=== PATIENT | male | born 1985 | race Caucasian/White ===

== ENCOUNTER 2018-08-28 10:08 | Inpatient (IN) | payer OTHER ==
[2018-08-28 10:46] VITALS: BMI 19.2
--- NOTE | 2018-08-28 13:57 | HP ---
CIWA Score - CIWA Score Nausea/Vomitin Muscle Tremors: 2 Anxiety: 2 Agitation: 2 Paroxysmal Sweats: 1-Minimal Palms Moist Orientation: 0-Oriented Tacttile Disturbances: 1-Very Mild Itch/Numbness Auditory Disturbances: 1-Very Mild Visual Disturbances: 0-None Headache: 2-Mild CIWA-Ar Total Score: 13 Admission ROS BHS - HPI Chief Complaint: i need help to stop drinking alcohol Allergies/Adverse Reactions: Allergies Allergy/AdvReac Type Severity Reaction Status Date / Time No Known Drug Allergies Allergy Unknown Verified 08/28/18 14:23 EGGPLANT Allergy Severe Swelling Uncoded 08/28/18 11:54 NKDA Allergy Uncoded 08/28/18 11:54 History of Present Illness: this 32 years old male with alcohol dependence,withdrawal symptom,seeking detox, last detox [place] 2013 seizure longest sobriety 3 to 4 months depression stated need help to stop drinking Exam Limitations: No Limitations - Ebola screening Have you traveled outside of the country in the last 21 days: No Have you had contact with anyone from an Ebola affected area: No Have you been sick,other than usual withdrawal symptoms: No Do you have a fever: No - Review of Systems Constitutional: Loss of Appetite, Malaise, Night Sweats, Weakness EENT: reports: Nose Congestion Respiratory: reports: No Symptoms reported Cardiac: reports: No Symptoms Reported GI: reports: Poor Appetite, Abdominal cramping : reports: No Symptoms Reported Musculoskeletal: reports: Muscle Pain Integumentary: reports: Dryness Neuro: reports: Headache, Tremors Endocrine: reports: No Symptoms Reported Hematology: reports: No Symptoms Reported Psychiatric: reports: Judgement Intact, Mood/Affect Appropiate, Orientated x3, Depressed Patient History - Patient Medical History Hx Anemia: No Hx Asthma: No Hx Chronic Obstructive Pulmonary Disease (COPD): No Hx Cancer: No Hx Cardiac Disorders: No Hx Congestive Heart Failure: No Hx Hypertension: No Hx Hypercholesterolemia: No Hx Seizures: Yes (v2-last episode was in 10/2017) Hx Dementia: No Hx Diabetes: No Hx Gastrointestinal Disorders: Yes (stomach ulcer) Hx Liver Disease: No Hx Genitourinary Disorders: No Hx Sexually Transmitted Disorders: No Hx Renal Disease (ESRD): No Hx Thyroid Disease: No Hx Human Immunodeficiency Virus (HIV): No (last 2018 negative) Hx Hepatitis C: No Hx Depression: Yes Hx Suicide Attempt: No Hx Bipolar Disorder: No Hx Schizophrenia: No Other Medical History: no suicidal,no homicidal - Patient Surgical History Past Surgical History: No Hx Neurologic Surgery: No Hx Cataract Extraction: No Hx Cardiac Surgery: No Hx Lung Surgery: No Hx Breast Surgery: No Hx Breast Biopsy: No Hx Abdominal Surgery: No Hx Appendectomy: No Hx Cholecystectomy: No Hx Genitourinary Surgery: No Hx Section: No Hx Orthopedic Surgery: No Anesthesia Reaction: No - PPD History Previous Implant?: Yes Documented Results: Negative w/o proof Implanted On Prior [facility] Admission?: No PPD to be Administered?: Yes - Smoking Cessation Smoking history: Never smoked Have you smoked in the past 12 months: No Hx Chewing Tobacco Use: No Initiated information on smoking cessation: No - Substance & Tx. History Hx Alcohol Use: Yes Hx Substance Use: No Substance Use Type: Alcohol Hx Substance Use Treatment: Yes (last 2012 [place]) - Substances Abused Alcohol-beer Route: Oral Frequency: Daily Amount used: 4 (24 oz.) Age of first use: 19 Date of Last Use: 08/28/18 Family Disease History - Family Disease History Family Disease History: Other: Father (alcohol) Admission Physical Exam BHS - Vital Signs Vital Signs: Vital Signs - 24 hr 08/28/18 10:44 Temperature 98.5 F Pulse Rate 70 Respiratory 20 Rate Blood Pressure 143/76 - Physical General Appearance: Yes: Mild Distress, Alcohol on Breath, Tremorous, Irritable , Sweating, Anxious HEENTM: Yes: Within Normal Limits, Normal ENT Inspection, Pharynx Normal Respiratory: Yes: Lungs Clear, Normal Breath Sounds, No Respiratory Distress Neck: Yes: Within Normal Limits, Supple, Trachea in good position Breast: Yes: Within Normal Limits Cardiology: Yes: Within Normal Limits, Regular Rate, S1, S2 Abdominal: Yes: Within Normal Limits, Normal Bowel Sounds, Non Tender, Soft Genitourinary: Yes: Within Normal Limits Back: Yes: Muscle Spasm Musculoskeletal: Yes: Back pain Extremities: Yes: Tremors Neurological: Yes: Within Normal Limits, senior water/wastewater engineer II-XII NML intact, Fully Oriented, Alert, Motor Strength 5/5 Integumentary: Yes: Dry Lymphatic: Yes: Within Normal Limits - Diagnostic (1) Alcohol dependence with uncomplicated withdrawal Current Visit: Yes Status: Acute (2) Alcohol dependence with uncomplicated intoxication Current Visit: Yes Status: Acute (3) Seizure Current Visit: Yes Status: Acute (4) Depression Current Visit: Yes Status: Acute Cleared for Admission [facility] - Detox or Rehab [facility] Level of Care: Medically Managed Detox Regimen/Protocol: Librium [facility] Breath Alcohol Content Breath Alcohol Content: 0.240 Urine Drug Screen - Results Drug Screen Negative: Yes
[2018-08-28] MEDS ORDERED: MAGNESIUM HYDROX 2400MG/30ML ORAL SUSPENSION 30 ML CUP PO PRN (14:07)
[2018-08-28] MEDS ORDERED: MAGNESIUM CITRATE 300 ML BOTTLE PO PRN (14:07)
[2018-08-28] MEDS ORDERED: ACETAMINOPHEN 325 MG TABLET (FP) PO PRN (14:07)
[2018-08-28] MEDS ORDERED: LOPERAMIDE HCL 2 MG CAPSULE PO PRN (14:07)
[2018-08-28] MEDS ORDERED: IBUPROFEN 400 MG TABLET (FP) PO PRN (14:07)
[2018-08-28] MEDS ORDERED: guaiFENesin/D-METHORPHAN HB 10 ML UNIT-DOSE CUPS PO PRN (14:07)
[2018-08-28] MEDS ORDERED: MAG HYDROX/AL HYDROX/SIMETH 30 ML UNIT-DOSE CUP PO PRN (14:07)
[2018-08-28] MEDS ORDERED: MENTHOL/PHENOL 1 EACH UD MM PRN (14:07)
[2018-08-28] MEDS ORDERED: P-EPHED 60MG/TRIPROLIDI 2.5MG TABLET PO PRN (14:07)
[2018-08-28] MEDS: chlordiazePOXIDE HCL 25 MG CAPSULE PO PRN (14:58)
[2018-08-28] MEDS: chlordiazePOXIDE HCL 25 MG CAPSULE PO SCH ×2 (17:40→22:23)
[2018-08-28 19:03] LABS: URINE APPEARANCE CLEAR; URINE BILIRUBIN NEGATIVE (<2.0 mg/dL); URINE COLOR LTYELLOW; URINE GLUCOSE (UA) NEGATIVE (NEGATIVE); URINE KETONE NEGATIVE (NEGATIVE); URINE LEUK ESTERASE NEGATIVE (NEGATIVE); URINE NITRITE NEGATIVE (NEGATIVE); URINE PROTEIN NEGATIVE (NEGATIVE); URINE UROBILINOGEN NEGATIVE mg/dL (0.2-1.0)
[2018-08-28] MEDS ORDERED: MELATONIN 5 MG TABLETS PO PRN (22:00)
[2018-08-28] MEDS ORDERED: THIAMINE HCL 100 MG TABLET (FP) PO SCH (22:00)
[2018-08-29] MEDS: chlordiazePOXIDE HCL 25 MG CAPSULE PO PRN (02:38)
[2018-08-29] MEDS: chlordiazePOXIDE HCL 25 MG CAPSULE PO SCH (05:45)
--- NOTE | 2018-08-29 08:24 | CONSULT ---
[facility] Psychiatric Consult - Data Date of interview: 08/29/18 Admission source: [facility] Identifying data: this 32 years old male with alcohol dependence,withdrawal symptom,seeking detox,last detox [place] 2012. seizure. longest sobriety 3 to 4 months. depression. stated need help to stop drinking
[2018-08-29 09:16] VITALS: BP 129/96; TEMP 98.6
[2018-08-29] MEDS ORDERED: PRENATAL VITAMINS W/ FOLIC ACID TABLET (FP) PO SCH (10:00)
[2018-08-29 10:04] VITALS: PULSE 92
[2018-08-29 10:54] LABS: HEMATOCRIT 43.3 % (35.4-49); MCH 32.9 pg (25.7-33.7); MCHC 32.5 g/dl (32.0-35.9); MEAN CELL VOLUME 101.4 fl (80-96); MEAN PLT VOLUME 8.1 fl (7.5-11.1); PLATELET COUNT 138 K/MM3 (134-434); RBC 4.27 M/mm3 (4.00-5.60); RDW 15.2 % (11.9-15.9); WHITE BLOOD COUNT 4.3 K/mm3 (4.0-10.0)
[2018-08-29 11:22] LABS: ALBUMIN 4.1 g/dl (3.4-5.0); ALK PHOS 127 U/L (45-117); ANION GAP 8 MMOL/L (8-16); BILIRUBIN,TOTAL 0.9 mg/dL (0.2-1); BLOOD UREA NITROGEN 5 mg/dL (7-18); CALCIUM 8.8 mg/dL (8.5-10.1); CHLORIDE 105 mmol/L (98-107); CO2 30 mmol/L (21-32); CREATININE 0.5 mg/dL (0.55-1.3); GLUCOSE,RANDOM 85 mg/dL (74-106); POTASSIUM 4.5 mmol/L (3.5-5.1); SGOT/AST 232 U/L (15-37); SGPT/ALT 115 U/L (13-61); SODIUM 143 mmol/L (136-145); TOT PROT 7.7 g/dl (6.4-8.2)
--- NOTE | 2018-08-29 11:27 | DS ---
[facility] Detox Discharge Summary Admission Date: 08/28/18 Discharge Date: 08/29/18 - History Present History: Alcohol Dependence Additional Comments: Patient denied any withdrawal symptoms and demanded to leave AMA. As per patient , this is his first detox despite his admission note stating he had previous detox. Patient stated that his sister in law has mental problems and kept picking on him and that she is the one who told his brother to take him here for detox admission. Patient denies alcohol dependence stating that he only drinks 1 beer and a glass of wine occasionally. 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 Patient stated that he will be going to this job today to work. Patient instructed to call 911 and to see his PCP within 3 days. Patient verbalized understanding. Pertinent Past History: Alcohol related seizure disorder - Physical Exam Results Vital Signs: Vital Signs Temperature 98.6 F 08/29/18 09:16 Pulse Rate 92 H 08/29/18 09:30 Respiratory Rate 20 08/29/18 09:30 Blood Pressure 129/96 08/29/18 09:16 O2 Sat by Pulse Oximetry (%) Pertinent Admission Physical Exam Findings: Withdrawal symptoms Laboratory Tests 08/28/18 08/29/18 15:56 06:00 WBC 4.3 RBC 4.27 Hgb 14.0 Hct 43.3 MCV 101.4 H MCH 32.9 MCHC 32.5 RDW 15.2 Plt Count 138 MPV 8.1 Urine Color Ltyellow Urine Appearance Clear Urine pH 6.0 Ur Specific [place] 1.009 L Urine Protein Negative Urine Glucose (UA) Negative Urine Ketones Negative Urine Blood Negative Urine Nitrite Negative Urine Bilirubin Negative Urine Urobilinogen Negative Ur Leukocyte Esterase Negative Labs reviewed: CMP, RPR result pending - Medication Discharge Medications: Ambulatory Orders NK [No Known Home Medication] 08/28/18 - Diagnosis (1) Alcohol related seizure Status: Chronic (2) Alcohol dependence with uncomplicated withdrawal Status: Acute (3) Depression Status: Chronic - AMA Did Patient Leave Against Medical Advice: Yes (Call 911 if withdrawal symptoms or feeling sick)
--- NOTE | 2018-08-29 12:19 | EKG ---
Test Reason : Blood Pressure : / mmHG Vent. Rate : 074 BPM Atrial Rate : 074 BPM P-R Int : 142 ms QRS Dur : 098 ms QT Int : 374 ms P-R-T Axes : 035 049 036 degrees QTc Int : 415 ms NORMAL SINUS RHYTHM WITH SINUS ARRHYTHMIA NORMAL ECG NO PREVIOUS ECGS AVAILABLE Confirmed by LEE ANN ROMAN MD ([id number]) on 08/29/2018 12:19:06 PM Referred By: Confirmed By:LEE ANN ROMAN MD
[2018-08-29] MEDS ORDERED: chlordiazePOXIDE HCL 25 MG CAPSULE PO SCH (17:00)
[2018-08-30] MEDS ORDERED: chlordiazePOXIDE 5 MG CAPSULE PO SCH (17:00)
[2018-08-31] MEDS ORDERED: chlordiazePOXIDE HCL 10 MG CAPSULE PO SCH (17:00)
== END 2018-08-29 10:12 | disposition left against medical advice (07) | DRG 770 ==
LOC: YASAS 10:08 → Y3N 14:16
PROC: HZ2ZZZZ Detoxification Services for Substance Abuse Treatment (ICD-10-PCS; principal; 2018-08-28)
DX: F10.230 Alcohol dependence with withdrawal, uncomplicated (principal); F32.9 Major depressive disorder, single episode, unspecified; Z86.69 Personal history of other diseases of the nervous system and sense organs; Z87.19 Personal history of other diseases of the digestive system
CPT/HCPCS: 36415; 80053; 81003; 85027; 86593; 93005; 93010

== ENCOUNTER 2018-09-10 01:33 | Emergency (ER) | payer OTHER ==
[2018-09-10 02:02] VITALS: BP 130/70; PULSE 88; TEMP 97.7; BMI 19.8
[2018-09-10] MEDS ORDERED: SODIUM CHLORIDE 1,000 ML IV STA (02:03)
[2018-09-10 02:34] LABS: BASO % 3.3 % (0-2.0); EOS % 1.5 % (0-4.5); HEMATOCRIT 43.9 % (35.4-49); HEMOGLOBIN 15.5 GM/dL (11.7-16.9); LYMPH % 41.1 % (8-40); MCH 35.3 pg (25.7-33.7); MCHC 35.4 g/dl (32.0-35.9); MEAN CELL VOLUME 99.8 fl (80-96); MONO % 6.7 % (3.8-10.2); NEUT % 47.4 % (42.8-82.8); PLATELET COUNT 181 K/MM3 (134-434); RDW 14.4 % (11.9-15.9); WHITE BLOOD COUNT 4.6 K/mm3 (4.0-10.0)
--- NOTE | 2018-09-10 02:43 | PDOC ---
History of Present Illness - General Chief Complaint: Alcohol intoxication Stated Complaint: INTOX Time Seen by Provider: 09/10/18 02:02 History Source: Patient Exam Limitations: No Limitations - History of Present Illness Initial Comments: 09/10/18 03:00 Best Contact: PCP:None Pmhx:0 Pshx:0 Allergies:0 FH:0 Social Hx: Cigarettes/ 0 Alcohol/ social Drugs/0 LMP:N/A 32-year-old male presents to the ER without any complaints. Patient states he entered alcohol detox at [facility] today and was sent here to the emergency department to being intoxicated He she states he only had 2 shots of tequila 8 hours ago. Patient denies pain, weakness, nausea/vomiting/diarrhea, fever/chills, headache, dizziness, lightheadedness, facial pains, neck pain/ stiffness, back pains, chest pain, shortness of breath, abdominal pains, flank pains, urinary symptoms, extremity numbness or tingling sensation. Patient states he is fine and has no medical complaints. Patient's last alcohol detox session was 6 years ago in 2011 at [facility] Past History - Past Medical History Allergies/Adverse Reactions: Allergies Allergy/AdvReac Type Severity Reaction Status Date / Time No Known Drug Allergies Allergy Unknown Verified 09/10/18 01:42 EGGPLANT Allergy Severe Swelling Uncoded 09/10/18 01:42 NKDA Allergy Uncoded 09/10/18 01:42 Home Medications: Ambulatory Orders NK [No Known Home Medication] 08/28/18 Anemia: No Asthma: No Cancer: No Cardiac Disorders: No COPD: No CHF: No Dementia: No Diabetes: No GI Disorders: Yes (stomach ulcer) Disorders: No HTN: No Hypercholesterolemia: No Kidney Stones: No Liver Disease: No Seizures: Yes (v2-last episode was in 10/2017) Thyroid Disease: No - Surgical History Abdominal Surgery: No Appendectomy: No Cardiac Surgery: No Cholecystectomy: No Lung Surgery: No Neurologic Surgery: No Orthopedic Surgery: No - Reproductive History Testicular Surgery: No - Suicide/Smoking/Psychosocial Hx Smoking History: Never smoked Have you smoked in the past 12 months: No Hx Alcohol Use: Yes Drug/Substance Use Hx: No Substance Use Type: Alcohol Hx Substance Use Treatment: Yes (last 2012 [place]) Review of Systems - Review of Systems Able to Perform ROS?: Yes Comments:: 09/10/18 03:04 CONSTITUTIONAL: Absent: fever, chills, diaphoresis, generalized weakness, malaise, loss of appetite HEENT: Absent: rhinorrhea, nasal congestion, throat pain, throat swelling, difficulty swallowing, mouth swelling, ear pain, eye pain, visual Changes CARDIOVASCULAR: Absent: chest pain, loss of consciousness, palpitations, irregular heart rate, peripheral edema RESPIRATORY: Absent: cough, shortness of breath, dyspnea with exertion, orthopnea, wheezing, stridor, hemoptysis GASTROINTESTINAL: Absent: abdominal pain, abdominal distension, nausea, vomiting, diarrhea, constipation, melena, hematochezia GENITOURINARY: Absent: dysuria, frequency, urgency, hesitancy, hematuria, flank pain, genital pain MUSCULOSKELETAL: Absent: myalgia, arthralgia, joint swelling SKIN: Absent: rash, itching, pallor HEMATOLOGIC/IMMUNOLOGIC: Absent: easy bleeding, easy bruising, lymphadenopathy, frequent infections ENDOCRINE: Absent: unexplained weight gain, unexplained weight loss, heat intolerance, cold intolerance NEUROLOGIC: Absent: headache, focal weakness or paresthesias, dizziness, unsteady gait, seizure, mental status changes, bladder or bowel incontinence PSYCHIATRIC: Absent: anxiety, depression, suicidal or homicidal ideation, hallucinations. Is the patient limited Bengali proficient: No *Physical Exam - Vital Signs Last Vital Signs Temp Pulse Resp BP Pulse Ox 97.7 F 88 18 130/70 98 09/10/18 01:41 09/10/18 01:41 09/10/18 01:41 09/10/18 01:41 09/10/18 01:41 - Physical Exam Comments: 09/10/18 03:04 GENERAL: Well developed, well nourished. Awake and alert. No acute distress. HEENT: Normocephalic, atraumatic. PERRLA, EOMI. No conjunctival pallor. Sclera are non- icteric. Moist mucous membranes. Oropharynx is clear. NECK: Supple. Full ROM. No JVD. Carotid pulses 2+ and symmetric, without bruits. No thyromegaly. No lymphadenopathy. CARDIOVASCULAR: Regular rate and rhythm. No murmurs, rubs, or gallops. Distal pulses are 2+ and symmetric. PULMONARY: No evidence of respiratory distress. Lungs clear to auscultation bilaterally. No wheezing, rales or rhonchi. ABDOMINAL: Soft. Non-tender. Non-distended. No rebound or guarding. No organomegaly. Normoactive bowel sounds. MUSCULOSKELETAL Normal range of motion at all joints. No bony deformities or tenderness. No CVA tenderness. EXTREMITIES: No cyanosis. No clubbing. No edema. No calf tenderness. SKIN: Warm and dry. Normal capillary refill. No rashes. No jaundice. NEUROLOGICAL: Alert, awake, appropriate. Cranial nerves 2-12 intact. No deficits to light touch and temperature in face, upper extremities and lower extremities. No motor deficits in the in face, upper extremities and lower extremities. Normoreflexic in the upper and lower extremities. Normal speech. Toes are down- going bilaterally. Gait is normal without ataxia. PSYCHIATRIC: Cooperative. Good eye contact. Appropriate mood and affect. ED Treatment Course - LABORATORY CBC & Chemistry Diagram: 09/10/18 02:22 09/10/18 02:22 - ADDITIONAL ORDERS Additional order review: 09/10/18 02:22 RBC 4.40 MCV 99.8 H MCHC 35.4 RDW 14.4 MPV 7.0 L D Neutrophils % 47.4 Lymphocytes % 41.1 H Monocytes % 6.7 Eosinophils % 1.5 Basophils % 3.3 H *DC/Admit/Observation/Transfer Diagnosis at time of Disposition: Alcohol dependence with uncomplicated intoxication, Hypokalemia - Discharge Dispostion Condition at time of disposition: Stable Decision to Admit order: No - Referrals - Patient Instructions Printed Discharge Instructions: DI for Alcohol Abuse Additional Instructions: Increase fluids Rest Avoid alcohol REturn to the ER for any chest pain, shortness breath or any concerns - Post Discharge Activity Progress Note - Progress Note Progress Note: 0430hrs: Spoke to Khushi/detox. I've advised her that the patient is alert and oriented without slurring his speech. Patient speaking full sentences. Walking without stumbling. Patient has no medical complaints. Patient has been hydrated well and given a run of potassium. Potassium 3.4 prior to KCl 20 mEq.. Patient is to be discharged back to detox at 0600 hrs.to the intake area.
[2018-09-10] MEDS ORDERED: FOLIC ACID INJECTION - 1 MG, THIAMINE HCL 100 MG, MULTIVIT INJECTION ADULT 10 ML in SOD... IVPB ONE (03:10)
[2018-09-10 03:11] LABS: ALK PHOS 102 U/L (45-117); ANION GAP 8 MMOL/L (8-16); BILIRUBIN,TOTAL 0.4 mg/dL (0.2-1); BLOOD UREA NITROGEN 6 mg/dL (7-18); CALCIUM 8.1 mg/dL (8.5-10.1); CHLORIDE 106 mmol/L (98-107); CO2 28 mmol/L (21-32); CREATININE 0.6 mg/dL (0.55-1.3); GLUCOSE,RANDOM 99 mg/dL (74-106); POTASSIUM 3.4 mmol/L (3.5-5.1); SGOT/AST 138 U/L (15-37); SGPT/ALT 85 U/L (13-61); SODIUM 142 mmol/L (136-145); TOT PROT 7.6 g/dl (6.4-8.2)
[2018-09-10] MEDS ORDERED: POTASSIUM CHLORIDE 20 MEQ PREMIX IVPB 100 ML IVPB ONE (03:22)
[2018-09-10] MEDS ORDERED: KCL 10 MEQ IVPB 10 MEQ/100 ML INFUS.BAG IVPB SCH (03:45)
[2018-09-10] MEDS ORDERED: POTASSIUM CHLORIDE TABS 20 MEQ TABLET.ER (FP) PO ONE ×2 (05:31→05:34)
== END 2018-09-10 06:22 | disposition home or self-care (01) ==
LOC: JER 01:33
PROC: 3E0337Z Introduction of Electrolytic and Water Balance Substance into Peripheral Vein, Percutaneous Approach (ICD-10-PCS; principal; 2018-09-10)
PROC: 3E033GC Introduction of Other Therapeutic Substance into Peripheral Vein, Percutaneous Approach (ICD-10-PCS; 2018-09-10)
DX: F10.220 Alcohol dependence with intoxication, uncomplicated (principal); Y90.7 Blood alcohol level of 200-239 mg/100 ml
CPT/HCPCS: 36415; 80053; 80307; 85025; 96361; 96365; 96366; 99282-25; J7030

== ENCOUNTER 2020-07-09 11:51 | Inpatient (IN) | payer OTHER ==
--- NOTE | 2020-07-09 12:15 | BHS.RME ---
Substance Use & Tx History - Substance Use History Alcohol Substance amount: 3 24 oz beers Frequency of use: Daily Substance route: Oral Date of Last Use: 07/08/20 Physical/Psych/Mental Status - Behavior General Behavior: Decreased activity Eye Contact: Normal - Cooperativeness Cooperativeness: Cooperative - Thinking Thought Processes: Tight, Logical, Goal Directed - Physical Health Problems Is patient presently having any pain?: No Does patient presently have any injuries (include location): No Does patient currently have a fever: No Is patient : No CIWA Nausea/Vomitin Muscle Tremors: 2 Anxiety: 2 Agitation: 2 Paroxysmal Sweats: 1-Minimal Palms Moist Orientation: 1-Uncertain about Date Tacttile Disturbances: 0-None Auditory Disturbances: 0-None Visual Disturbances: 0-None Headache: 0-None Present CIWA-Ar Total Score: 10
[2020-07-09 13:15] VITALS: BMI 19.3
--- NOTE | 2020-07-09 13:32 | HP ---
<Mitali Castillo - Last Filed: 07/09/20 13:31> CIWA Score Nausea/Vomitin Muscle Tremors: 2 Anxiety: 2 Agitation: 2 Paroxysmal Sweats: 1-Minimal Palms Moist Orientation: 1-Uncertain about Date Tacttile Disturbances: 0-None Auditory Disturbances: 0-None Visual Disturbances: 0-None Headache: 0-None Present CIWA-Ar Total Score: 10 - Admission Criteria OASAS Guidelines: Admission for Medically Managed Detox: Requires at least one of the followin. CIWA greater than 12 2. Seizures within the past 24 hours 3. Delirium tremens within the past 24 hours 4. Hallucinations within the past 24 hours 5. Acute intervention needed for co occurring medical disorder 6. Acute intervention needed for co occurring psychiatric disorder 7. Severe withdrawal that cannot be handled at a lower level of care (continued vomiting, continued diarrhea, abnormal vital signs) requiring intravenous medication and/or fluids 8. Admitting History and Physical - Admission History of Present Illness: Mr. Martinez is a 34 yo man who presents to [facility] for alcohol detox Substance Use History Alcohol Substance amount: 3 24 oz beers Frequency of use: Daily Substance route: Oral Date of Last Use: 07/08/20 - Smoking History Smoking history: Never smoked Have you smoked in the past 12 months: No - Alcohol/Substance Use Hx Alcohol Use: Yes Admission [facility] Allergies/Adverse Reactions: Allergies Allergy/AdvReac Type Severity Reaction Status Date / Time No Known Drug Allergies Allergy Unknown Verified 07/09/20 13:09 EGGPLANT Allergy Severe Swelling Uncoded 07/09/20 13:09 NKDA Allergy Uncoded 07/09/20 13:09 Patient History - Patient Medical History Hx Anemia: No Hx Asthma: No Hx Chronic Obstructive Pulmonary Disease (COPD): No Hx Cancer: No Hx Cardiac Disorders: No Hx Congestive Heart Failure: No Hx Hypertension: No Hx Hypercholesterolemia: No Hx Seizures: No Hx Dementia: No Hx Diabetes: No Hx Gastrointestinal Disorders: No Hx Liver Disease: No Hx Genitourinary Disorders: No Hx Sexually Transmitted Disorders: No Hx Renal Disease (ESRD): No Hx Thyroid Disease: No Hx Human Immunodeficiency Virus (HIV): No (last 2017 negative) Hx Hepatitis C: No Hx Depression: No Hx Suicide Attempt: No Hx Bipolar Disorder: No Hx Schizophrenia: No - Patient Surgical History Past Surgical History: No Hx Neurologic Surgery: No Hx Cataract Extraction: No Hx Cardiac Surgery: No Hx Lung Surgery: No Hx Breast Surgery: No Hx Breast Biopsy: No Hx Abdominal Surgery: No Hx Appendectomy: No Hx Cholecystectomy: No Hx Genitourinary Surgery: No Hx Section: No Hx Orthopedic Surgery: No Anesthesia Reaction: No - PPD History Previous Implant?: Yes Documented Results: Negative w/o proof Implanted On Prior R Admission?: No Date: 08/30/18 - Smoking Cessation Smoking history: Never smoked Have you smoked in the past 12 months: No Hx Chewing Tobacco Use: No - Substances abused Alcohol Substance route: Oral Frequency: Daily Amount used: 24 oz beers/ 1 pint vodka Age of first use: 17 Date of last use: 07/09/20 Admission Physical Exam BHS - Vital Signs Vital Signs: Vital Signs - 24 hr 07/09/20 13:11 Temperature 97.9 F Pulse Rate 82 Respiratory 18 Rate Blood Pressure 124/82 Breathalyzer - Breathalyzer Breathalyzer: 0.495 Urine Drug Screen - Test Device Lot number: [id number] Expiration date: 06/08/22 - Control Is test valid?: Yes - Results Drug screen NEGATIVE: No Urine drug screen results: BZO-Benzodiazepines <Jaylon,Jose - Last Filed: 07/09/20 13:55> CIWA Score - Admission Criteria OASAS Guidelines: Admission for Medically Managed Detox: Requires at least one of the followin. CIWA greater than 12 2. Seizures within the past 24 hours 3. Delirium tremens within the past 24 hours 4. Hallucinations within the past 24 hours 5. Acute intervention needed for co occurring medical disorder 6. Acute intervention needed for co occurring psychiatric disorder 7. Severe withdrawal that cannot be handled at a lower level of care (continued vomiting, continued diarrhea, abnormal vital signs) requiring intravenous medication and/or fluids 8. Admitting History and Physical - Admission Limitations to Obtaining History: No Limitations Admission ROS BHS - HPI Exam Limitations: No Limitations - Ebola screening Have you traveled outside of the country in the last 21 days: No Have you had contact with anyone from an Ebola affected area: No Have you been sick,other than usual withdrawal symptoms: No Do you have a fever: No - Review of Systems Constitutional: Chills EENT: reports: No Symptoms Reported Respiratory: reports: No Symptoms reported Cardiac: reports: No Symptoms Reported GI: reports: No Symptoms Reported : reports: No Symptoms Reported Musculoskeletal: reports: No Symptoms Reported Integumentary: reports: No Symptoms Reported Neuro: reports: No Symptoms reported Endocrine: reports: No Symptoms Reported Hematology: reports: No Symptoms Reported Psychiatric: reports: Judgement Intact, Mood/Affect Appropiate, Orientated x3, Agitated, Anxious Other Systems: Reviewed and Negative Patient History - PPD History PPD to be Administered?: Yes Admission Physical Exam [facility] - Vital Signs Vital Signs: Vital Signs - 24 hr 07/09/20 13:11 Temperature 97.9 F Pulse Rate 82 Respiratory 18 Rate Blood Pressure 124/82 - Physical General Appearance: Yes: Thin, Tremorous, Irritable, Anxious HEENTM: Yes: EOMI, Hearing grossly Normal, Normal ENT Inspection, Normocephalic, Normal Voice, UMU, Pharynx Normal, Tm's normal Respiratory: Yes: Chest Non-Tender, Lungs Clear, Normal Breath Sounds, No Respiratory Distress, No Accessory Muscle Use Neck: Yes: No masses,lesions,Nodules, Supple, Trachea in good position Breast: Yes: Within Normal Limits Cardiology: Yes: Regular Rhythm, Regular Rate, S1, S2 Abdominal: Yes: Normal Bowel Sounds, Non Tender, Flat, Soft Genitourinary: Yes: Within Normal Limits Back: Yes: Normal Inspection Musculoskeletal: Yes: full range of Motion, Gait Steady, Pelvis Stable Extremities: Yes: Normal Capillary Refill, Normal Inspection, Normal Range of Motion, Non-Tender 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, Fully Oriented, Alert, Motor Strength 5/5, Normal Mood/Affect, Normal Response Integumentary: Yes: Normal Color, Dry, Warm Lymphatic: Yes: Within Normal Limits - Diagnostic (1) Alcohol dependence with uncomplicated intoxication Current Visit: Yes Status: Acute (2) Alcohol dependence with uncomplicated withdrawal Current Visit: Yes Status: Acute (3) Seizure Current Visit: Yes Status: Acute (4) Alcohol related seizure Current Visit: Yes Status: Chronic (5) Depression Current Visit: Yes Status: Chronic Cleared for Admission [facility] - Detox or Rehab [facility] Level of Care: Medically Managed Detox Regimen/Protocol: Librium [facility] for Rehab Admission: No Screened but not Admitted - Documentation of Visit Screened but not Admitted: No Vital Signs - Vital Signs Vital signs refused: No Temperature: 97.9 F Pulse Rate: 82 Respiratory Rate: 18 Blood Pressure: 124/82 BP Location: Left Arm Blood Pressure position: Sitting - Height Height: 6 ft 2 in - Weight Weight: 151 lb Weight measurement method: Standing scale - BMI Body Mass Index (BMI): 19.3 - Bowel Function Bowel Movement: No Inpatient Rehab Admission - Rehab Decision to Admit Inpatient rehab admission?: No
[2020-07-09] MEDS ORDERED: METHOCARBAMOL 500 MG TABLET PO PRN (13:56)
[2020-07-09] MEDS ORDERED: MENTHOL/PHENOL 1 EACH UD MM PRN (13:56)
[2020-07-09] MEDS ORDERED: chlordiazePOXIDE HCL 25 MG CAPSULE PO PRN (13:56)
[2020-07-09] MEDS ORDERED: MAGNESIUM HYDROX 2400MG/30ML ORAL SUSPENSION 30 ML CUP PO PRN (13:56)
[2020-07-09] MEDS ORDERED: MAG HYDROX/AL HYDROX/SIMETH 30 ML UNIT-DOSE CUP PO PRN (13:56)
[2020-07-09] MEDS ORDERED: MAGNESIUM CITRATE 300 ML BOTTLE PO PRN (13:56)
[2020-07-09] MEDS ORDERED: ONDANSETRON *ODT* 4 MG TABLET SL ONE (13:56)
[2020-07-09] MEDS ORDERED: ACETAMINOPHEN 325 MG TABLET (FP) PO PRN ×2 (13:56)
[2020-07-09] MEDS ORDERED: IBUPROFEN 400 MG TABLET (FP) PO PRN (13:56)
[2020-07-09] MEDS ORDERED: BISMUTH SUBSALICYLATE 524 MG/30 ML UD PO PRN (13:56)
[2020-07-09] MEDS ORDERED: PRENATAL VITAMINS W/ FOLIC ACID TABLET (FP) PO SCH (14:00)
[2020-07-09] MEDS ORDERED: hydrOXYzine PAMOATE 25 MG CAPSULE (FP) PO SCH (14:00)
[2020-07-09] MEDS ORDERED: hydrOXYzine PAMOATE 25 MG CAPSULE (FP) PO PRN (14:45)
[2020-07-09] MEDS: GABAPENTIN 300 MG CAPSULE PO SCH ×2 (15:02→22:38)
[2020-07-09 15:51] LABS: HEMATOCRIT 41.2 % (35.4-49); HEMOGLOBIN 13.8 GM/dL (11.7-16.9); MCH 33.9 pg (25.7-33.7); MCHC 33.4 g/dl (32.0-35.9); MEAN CELL VOLUME 101.4 fl (80-96); MEAN PLT VOLUME 7.1 fl (7.5-11.1); PLATELET COUNT 137 K/MM3 (134-434); RBC 4.07 M/mm3 (4.00-5.60); RDW 13.1 % (11.9-15.9); WHITE BLOOD COUNT 3.8 K/mm3 (4.0-10.0)
[2020-07-09 16:02] LABS: ALBUMIN 3.8 g/dl (3.4-5.0); BILIRUBIN,TOTAL 0.9 mg/dL (0.2-1); CALCIUM 8.3 mg/dL (8.5-10.1); CREATININE 0.5 mg/dL (0.55-1.3); POTASSIUM 3.8 mmol/L (3.5-5.1); TOT PROT 7.6 g/dl (6.4-8.2)
[2020-07-09] MEDS: chlordiazePOXIDE HCL 25 MG CAPSULE PO SCH ×2 (17:24→22:38)
[2020-07-09] MEDS ORDERED: THIAMINE HCL 100 MG TABLET (FP) PO SCH (22:00)
[2020-07-09] MEDS ORDERED: MELATONIN 5 MG TABLETS PO SCH (22:00)
[2020-07-10] MEDS: chlordiazePOXIDE HCL 25 MG CAPSULE PO SCH (05:11)
[2020-07-10] MEDS: GABAPENTIN 300 MG CAPSULE PO SCH (05:11)
[2020-07-10 10:08] VITALS: BP 125/88; PULSE 80; TEMP 98
--- NOTE | 2020-07-10 11:27 | PN ---
[facility] CIWA - CIWA Score Nausea/Vomitin-No Nausea/No Vomiting Muscle Tremors: 3 Anxiety: 3 Agitation: 2 Paroxysmal Sweats: 2 Orientation: 0-Oriented Tacttile Disturbances: 0-None Auditory Disturbances: 0-None Visual Disturbances: 0-None Headache: 0-None Present CIWA-Ar Total Score: 10 S Progress Note (SOAP) Subjective: Complaints of sweats, tremors and anxiety. Objective: 07/10/20 11:25 Vital Signs 07/10/20 07/10/20 05:09 09:06 Temperature 97.3 F L 98.0 F Pulse Rate 74 80 Respiratory 16 18 Rate Blood Pressure 125/87 125/88 O2 Sat by Pulse 97 97 Oximetry (%) Laboratory Last Values WBC 3.8 K/mm3 (4.0-10.0) L 07/09/20 13:20 RBC 4.07 M/mm3 (4.00-5.60) 07/09/20 13:20 Hgb 13.8 GM/dL (11.7-16.9) 07/09/20 13:20 Hct 41.2 % (35.4-49) 07/09/20 13:20 MCV 101.4 fl (80-96) H 07/09/20 13:20 MCH 33.9 pg (25.7-33.7) H 07/09/20 13:20 MCHC 33.4 g/dl (32.0-35.9) 07/09/20 13:20 RDW 13.1 % (11.9-15.9) 07/09/20 13:20 Plt Count 137 K/MM3 (134-434) D 07/09/20 13:20 MPV 7.1 fl (7.5-11.1) L 07/09/20 13:20 Sodium 143 mmol/L (136-145) 07/09/20 13:20 Potassium 3.8 mmol/L (3.5-5.1) 07/09/20 13:20 Chloride 106 mmol/L (98-107) 07/09/20 13:20 Carbon Dioxide 30 mmol/L (21-32) 07/09/20 13:20 Anion Gap 7 MMOL/L (8-16) L 07/09/20 13:20 BUN 4.0 mg/dL (7-18) L 07/09/20 13:20 Creatinine 0.5 mg/dL (0.55-1.3) L 07/09/20 13:20 Est GFR (CKD-EPI)AfAm 166.19 07/09/20 13:20 Est GFR (CKD-EPI)NonAf 143.39 07/09/20 13:20 Random Glucose 116 mg/dL (74-106) H 07/09/20 13:20 Calcium 8.3 mg/dL (8.5-10.1) L 07/09/20 13:20 Total Bilirubin 0.9 mg/dL (0.2-1) 07/09/20 13:20 AST 133 U/L (15-37) H 07/09/20 13:20 ALT 52 U/L (13-61) 07/09/20 13:20 Alkaline Phosphatase 135 U/L (45-117) H 07/09/20 13:20 Total Protein 7.6 g/dl (6.4-8.2) 07/09/20 13:20 Albumin 3.8 g/dl (3.4-5.0) 07/09/20 13:20 Syphilis Serology Non-reactive (NONREACTIVE) 07/09/20 13:20 COVID-19 (ANNEMARIE) Not detected (Not Detected) 07/09/20 14:15 Labs noted with elevated AST. Assessment: 07/10/20 11:26 Alert and oriented x 3, in no acute respiratory distress. Full ROM, ambulating in unit without assistance. Skin warm to touch without any lesions. Withdrawal symptoms. Plan: Continue detox protocol. Switch to Ativan due to elevated AST.
--- NOTE | 2020-07-10 12:08 | DS ---
[facility] Detox Discharge Summary Admission Date: 07/09/20 Discharge Date: 07/10/20 - History Present History: Alcohol Dependence Additional Comments: Alert and oriented x 3, in no acute respiratory distress. Full ROM, ambulating in unit without assistance. Skin warm to touch without any lesions. Wants to leave AMA, encouraged to stay but refused. Pertinent Past History: History of alcohol use disorder. - Physical Exam Results Vital Signs: Vital Signs Temperature 98.0 F 07/10/20 09:06 Pulse Rate 80 07/10/20 09:06 Respiratory Rate 18 07/10/20 09:06 Blood Pressure 125/88 07/10/20 09:06 O2 Sat by Pulse Oximetry (%) 97 07/10/20 09:06 Pertinent Admission Physical Exam Findings: Withdrawal symptoms. - Medication Discharge Medications: Ambulatory Orders Folic Acid - 1 mg PO DAILY 07/09/20 Gabapentin [Neurontin -] 300 mg PO Q8H 07/09/20 Multivitamin with Iron [Daily Myra with Iron] 1 each PO DAILY 07/09/20 Thiamine HCl [Vitamin B1] 100 mg PO DAILY 07/09/20 - Diagnosis (1) Alcohol dependence with uncomplicated intoxication Status: Acute (2) Alcohol related seizure Status: Chronic - AMA Did Patient Leave Against Medical Advice: Yes
[2020-07-11] MEDS ORDERED: chlordiazePOXIDE HCL 25 MG CAPSULE PO SCH (05:00)
[2020-07-12] MEDS ORDERED: chlordiazePOXIDE HCL 10 MG CAPSULE PO PRN
[2020-07-12] MEDS ORDERED: chlordiazePOXIDE HCL 10 MG CAPSULE PO SCH (05:00)
[2020-07-13] MEDS ORDERED: chlordiazePOXIDE HCL 10 MG CAPSULE PO SCH (05:00)
[2020-07-14] MEDS ORDERED: chlordiazePOXIDE HCL 10 MG CAPSULE PO ONE (05:00)
== END 2020-07-10 11:50 | disposition left against medical advice (07) | DRG 770 ==
LOC: YASAS 11:51 → Y6N 13:46
PROVIDERS: ADMIT Allergy & Immunology; ATTEND Allergy & Immunology
PROC: HZ2ZZZZ Detoxification Services for Substance Abuse Treatment (ICD-10-PCS; principal; 2020-07-09)
DX: F10.230 Alcohol dependence with withdrawal, uncomplicated (principal); F32.9 Major depressive disorder, single episode, unspecified; G40.509 Epileptic seizures related to external causes, not intractable, without status epilepticus; R74.0 Nonspecific elevation of levels of transaminase and lactic acid dehydrogenase [LDH]; Z91.018 Allergy to other foods
CPT/HCPCS: 36415; 80053; 85027; 86780; U0003